=== PATIENT | female | born 1940 | race Caucasian/White ===

== ENCOUNTER 2017-11-24 21:37 | Inpatient (IN) | payer MEDICARE ==
[~2017-11-24] VITALS: Ht 160 cm; Wt 74.3 kg
[~2017-11-24 21:37] MED LIST: ARFO15NE IN; ASPI325T4 PO; ATOR20TA50 PO; BUDE0.253 IN; ESTR0.3T PO; FURO40TA4 PO; HYDR50TA15 PO; LEVO50TA7 PO; LOSA100T33 PO; MAGN400T5 PO; MULT-228 PO; MULT-688 PO; POTA10TA51 PO; TIOTCAP IN; aspirin; brovana; furosemide; levothyroxine; lipitor; potassium; soma; spiriva
[2017-11-24 22:19] LABS: Hematocrit 41.5 % (36.0-46.0); Hemoglobin 13.7 g/dL (12.2-16.2); Mean Corpuscular Hemoglobin 32.1 pg (28.0-32.0); Mean Corpuscular Hgb Conc. 33.1 g/dL (32.0-36.0); Partial Thromboplastin Time 27.7 sec (23.78-33.04); Platelet Count (auto) 298 10^3/uL (140-450); Prothrombin Time 10.7 sec (9.27-12.13); Red Blood Cells 4.28 10^6/uL (4.0-5.20); Red Cell Distribution Width 17.6 % (11.8-14.3); White Blood Cell 6.7 10^3/uL (4.4-10.8)
[2017-11-24 22:21] LABS: Alanine Aminotransferase 57 U/L (13-56); Albumin 3.4 g/dL (3.4-5.0); Anion Gap 13 (5-15); Aspartate Aminotransferase 31 U/L (15-37); BUN/Creatinine Ratio 14.1; Blood Urea Nitrogen 29 mg/dL (7-18); Calcium 9.4 mg/dL (8.5-10.1); Carbon Dioxide 24 mmol/L (21-32); Chloride 102 mmol/L (98-107); GFR African American 30 mL/min; GFR Non-African American 25 mL/min; Glucose 151 mg/dL (74-106); Magnesium 2.4 mg/dL (1.6-2.6); Potassium 4.6 mmol/L (3.5-5.1); Sodium 139 mmol/L (136-145)
[2017-11-24 22:24] LABS: Basophils % (manual) 0 (0.0-2.0); Blast Cells 0; Eosinophils % (manual) 0 (0-7); Metamyelocytes % 0; Myelocytes % 0; Promyelocytes % 0; Reactive Lymphocytes 0
[2017-11-24 22:26] LABS: Alkaline Phosphatase 38 U/L (45-117); Bilirubin, Total 0.5 mg/dL (0.2-1.0); Total Protein 7.8 g/dL (6.4-8.2)
[2017-11-24 22:59] LABS: Band Neutrophils % (manual) 2; Lymphocytes % (manual) 18 (10.0-50.0); Monocytes % (manual) 3 (0-12)
[2017-11-25] VITALS (7 sets, daily range): BP systolic 146–207; BP diastolic 54–87
[2017-11-25] MEDS ORDERED: TICA90TA PO (01:07)
[2017-11-25] MEDS ORDERED: FOLITAB22 PO (01:07)
[2017-11-25] MEDS ORDERED: MONT10TA34 OR (01:07)
[2017-11-25] MEDS ORDERED: AMIO200T33 PO (01:07)
[2017-11-25] MEDS ORDERED: METO-158 PO (01:07)
[2017-11-25] MEDS ORDERED: ESTR0.3T PO (01:07)
[2017-11-25] MEDS ORDERED: APIX2.5T OR (01:07)
[2017-11-25] MEDS ORDERED: ROSU20TA14 PO (01:07)
[2017-11-25] MEDS ORDERED: FENO1TAB42 OR (01:07)
[2017-11-25] MEDS ORDERED: ALLO300T2 PO (01:07)
[2017-11-25] MEDS ORDERED: FURO20TA3 PO (01:07)
[2017-11-25] MEDS ORDERED: HYDROcodone-ACET 5/325MG TAB PO ONE (01:30)
[2017-11-25] MEDS ORDERED: ACETAMINOPHEN 500 MG TAB PO ONE (02:15)
[2017-11-25] MEDS ORDERED: cloNIDine HCL 0.1 MG TAB PO ONE (03:15)
[2017-11-25] MEDS ORDERED: FUROSEMIDE 20 MG/2 ML VIAL IV ONE (03:15)
[2017-11-25] MEDS ORDERED: MORPHINE SULF INJ 2 MG/ML SYRINGE 1ML IV PRN (04:15)
[2017-11-25] MEDS ORDERED: NITROGLYCERIN 0.4 MG SL TAB SL PRN (04:15)
[2017-11-25] MEDS ORDERED: ONDANSETRON HCL 4 MG/2 ML VIAL IV PRN (04:15)
[2017-11-25] MEDS ORDERED: HYDROcodone-ACET 5/325MG TAB PO PRN (04:15)
[2017-11-25 04:16] LABS: Urine Bacteria FEW /hpf (None Seen); Urine Blood Negative /uL (Negative); Urine Specific Gravity 1.011 (1.001-1.035); Urine WBC 1 /hpf (0 - 5)
[2017-11-25 05:23] LABS: Basophils # (auto) 0 uL; Basophils % (auto) 0.2 % (0.0-2.0); Eosinophils # (auto) 0 uL; Eosinophils % (auto) 0.1 % (0.0-7.0); Hematocrit 38.3 % (36.0-46.0); Hemoglobin 12.8 g/dL (12.2-16.2); Lymphocytes # (auto) 0.9 uL; Lymphocytes % (auto) 8.8 % (10.0-50.0); Mean Corpuscular Hemoglobin 32.3 pg (28.0-32.0); Mean Corpuscular Hgb Conc. 33.3 g/dL (32.0-36.0); Mean Corpuscular Volume 97.1 fL (80.0-100.0); Monocytes # (auto) 0.8 uL; Monocytes % (auto) 8.1 % (0.0-12.0); Neutrophils # (auto) 8.3 uL; Neutrophils % (auto) 82.8 % (37.0-80.0); Nucleated Red Blood Cells % 0.1 %; Platelet Count (auto) 259 10^3/uL (140-450); Red Blood Cells 3.94 10^6/uL (4.0-5.20); Red Cell Distribution Width 16.9 % (11.8-14.3); White Blood Cell 10.1 10^3/uL (4.4-10.8)
[2017-11-25 05:43] LABS: BUN/Creatinine Ratio 16.4; Calcium 9.3 mg/dL (8.5-10.1)
[2017-11-25] MEDS: IPRATROPIUM BROM 0.5 MG/2.5ML INH SOL NEB SCH ×4 (06:27→23:02)
[2017-11-25] MEDS: ALBUTEROL SULF 2.5 MG/0.5ML(0.5%) NEB SOLN NEB SCH ×4 (06:27→23:02)
[2017-11-25] MEDS: LEVOTHYROXINE SODIUM 50 MCG TAB PO SCH (07:46)
[2017-11-25] MEDS: hydrALAZINE HCL 20 MG/ML VL IV PRN ×2 (07:47→21:48)
[2017-11-25] MEDS: FUROSEMIDE 40 MG/4 ML VIAL IV SCH (10:14)
[2017-11-25] MEDS: AMIODARONE HCL 200 MG TAB PO SCH ×2 (10:15→21:47)
[2017-11-25] MEDS: METOPROLOL TARTRATE 50 MG TAB PO SCH ×2 (10:15→21:47)
[2017-11-25] MEDS: ACETAMINOPHEN 500 MG TAB PO PRN ×2 (10:25→20:21)
[2017-11-25] MEDS ORDERED: LEVOFLOXACIN 500MG 100 ML IV ONE (13:45)
[2017-11-25] MEDS ORDERED: methylPREDNISolone SOD SUCC 125 MG/2 ML VL IV ONE (13:45)
[2017-11-25] MEDS ORDERED: TIOT1AER IN (15:50)
[2017-11-25] MEDS: MONTELUKAST SODIUM 10 MG TAB PO SCH (21:47)
[2017-11-25] MEDS: TEMAZEPAM 15 MG CAP PO PRN (23:21)
[2017-11-26] MEDS: ACETAMINOPHEN 500 MG TAB PO PRN (03:38)
[2017-11-26 05:13] VITALS: BP 154/74
[2017-11-26] MEDS: LEVOTHYROXINE SODIUM 50 MCG TAB PO SCH (06:49)
[2017-11-26] MEDS: hydrALAZINE HCL 20 MG/ML VL IV PRN ×2 (06:49→23:39)
[2017-11-26] MEDS: ALBUTEROL SULF 2.5 MG/0.5ML(0.5%) NEB SOLN NEB SCH ×3 (07:10→19:45)
[2017-11-26] MEDS: IPRATROPIUM BROM 0.5 MG/2.5ML INH SOL NEB SCH ×3 (07:10→19:45)
[2017-11-26 09:00] VITALS: BP_SYST 118; BP_SYST 120; BP_DIAS 58; BP_DIAS 72
[2017-11-26] MEDS: LEVOFLOXACIN 250MG 50 ML IV SCH (09:55)
[2017-11-26] MEDS: methylPREDNISolone SOD SUCC 125 MG/2 ML VL IV SCH (09:55)
[2017-11-26] MEDS: FUROSEMIDE 40 MG/4 ML VIAL IV SCH (09:55)
[2017-11-26] MEDS: AMIODARONE HCL 200 MG TAB PO SCH ×2 (09:56→21:58)
[2017-11-26] MEDS ORDERED: TICAGRELOR 90 MG TAB PO ONE (10:45)
[2017-11-26] MEDS ORDERED: APIXABAN 2.5 MG TAB PO ONE (10:52)
[2017-11-26] MEDS: METOPROLOL TARTRATE 50 MG TAB PO SCH ×2 (12:51→21:59)
[2017-11-26 13:00] VITALS: BP 159/67
[2017-11-26 17:00] VITALS: BP 160/80
[2017-11-26] MEDS: cloNIDine HCL 0.1 MG TAB PO PRN (18:02)
[2017-11-26] MEDS: MONTELUKAST SODIUM 10 MG TAB PO SCH (21:58)
[2017-11-26] MEDS: APIXABAN 2.5 MG TAB PO SCH (21:58)
[2017-11-26 22:00] VITALS: BP 152/80
[2017-11-26] MEDS: TICAGRELOR 90 MG TAB PO SCH (22:00)
[2017-11-27] MEDS: IPRATROPIUM BROM 0.5 MG/2.5ML INH SOL NEB SCH ×6 (01:22→22:30)
[2017-11-27] MEDS: ALBUTEROL SULF 2.5 MG/0.5ML(0.5%) NEB SOLN NEB SCH ×6 (01:22→22:10)
[2017-11-27] MEDS: ACETAMINOPHEN 500 MG TAB PO PRN ×3 (01:30→23:32)
[2017-11-27 05:00] VITALS: BP 111/45
[2017-11-27] MEDS: LEVOTHYROXINE SODIUM 50 MCG TAB PO SCH (06:50)
[2017-11-27 09:00] VITALS: BP 148/54
[2017-11-27] MEDS: TICAGRELOR 90 MG TAB PO SCH ×2 (09:55→22:12)
[2017-11-27] MEDS: FUROSEMIDE 40 MG/4 ML VIAL IV SCH (09:55)
[2017-11-27] MEDS: methylPREDNISolone SOD SUCC 125 MG/2 ML VL IV SCH (09:55)
[2017-11-27] MEDS: LEVOFLOXACIN 250MG 50 ML IV SCH (09:55)
[2017-11-27] MEDS: METOPROLOL TARTRATE 50 MG TAB PO SCH ×2 (09:56→22:10)
[2017-11-27] MEDS: APIXABAN 2.5 MG TAB PO SCH ×2 (09:56→22:10)
[2017-11-27] MEDS: AMIODARONE HCL 200 MG TAB PO SCH ×2 (09:56→22:10)
[2017-11-27] MEDS: cloNIDine HCL 0.1 MG TAB PO PRN ×2 (12:17→23:32)
[2017-11-27 13:00] VITALS: BP 179/86
[2017-11-27] MEDS ORDERED: LACTULOSE 20Gm/30ML SOLN PO ONE (13:15)
[2017-11-27 17:20] VITALS: BP 148/62
[2017-11-27 22:00] VITALS: BP 151/63
[2017-11-27] MEDS ORDERED: LACTULOSE 20Gm/30ML SOLN PO PRN (22:00)
[2017-11-27] MEDS: MONTELUKAST SODIUM 10 MG TAB PO SCH (22:10)
[2017-11-28 01:15] VITALS: BP 168/88
[2017-11-28] MEDS: IPRATROPIUM BROM 0.5 MG/2.5ML INH SOL NEB SCH ×6 (02:00→18:48)
[2017-11-28] MEDS: ALBUTEROL SULF 2.5 MG/0.5ML(0.5%) NEB SOLN NEB SCH ×5 (02:00→18:47)
[2017-11-28 05:00] VITALS: BP 121/55
[2017-11-28] MEDS: LEVOTHYROXINE SODIUM 50 MCG TAB PO SCH (06:45)
[2017-11-28 09:00] VITALS: BP 132/42
[2017-11-28] MEDS: LEVOFLOXACIN 250MG 50 ML IV SCH (09:27)
[2017-11-28] MEDS: methylPREDNISolone SOD SUCC 125 MG/2 ML VL IV SCH (09:28)
[2017-11-28] MEDS: TICAGRELOR 90 MG TAB PO SCH (09:28)
[2017-11-28] MEDS: FUROSEMIDE 40 MG/4 ML VIAL IV SCH (09:28)
[2017-11-28] MEDS: APIXABAN 2.5 MG TAB PO SCH ×2 (09:29→22:04)
[2017-11-28] MEDS: AMIODARONE HCL 200 MG TAB PO SCH (09:29)
[2017-11-28] MEDS: METOPROLOL TARTRATE 50 MG TAB PO SCH (10:00)
[2017-11-28] MEDS: ACETAMINOPHEN 500 MG TAB PO PRN (11:16)
[2017-11-28 13:00] VITALS: BP 129/74
[2017-11-28 13:09] LABS: Hemoglobin 12.8 g/dL (12.2-16.2); Mean Corpuscular Hemoglobin 32.6 pg (28.0-32.0); Mean Corpuscular Hgb Conc. 33.7 g/dL (32.0-36.0); Mean Corpuscular Volume 96.5 fL (80.0-100.0); Platelet Count (auto) 306 10^3/uL (140-450); Red Blood Cells 3.94 10^6/uL (4.0-5.20); Red Cell Distribution Width 17.1 % (11.8-14.3)
[2017-11-28 13:11] LABS: Basophils % (manual) 0 (0.0-2.0); Blast Cells 0; Eosinophils % (manual) 0 (0-7); Metamyelocytes % 0; Myelocytes % 0; Promyelocytes % 0; Reactive Lymphocytes 0
[2017-11-28 13:27] LABS: Albumin 3.1 g/dL (3.4-5.0); Bilirubin, Total 0.6 mg/dL (0.2-1.0); Calcium 9.2 mg/dL (8.5-10.1); Potassium 3.9 mmol/L (3.5-5.1); Total Protein 6.5 g/dL (6.4-8.2)
[2017-11-28 13:46] LABS: Band Neutrophils % (manual) 2; Lymphocytes % (manual) 2 (10.0-50.0)
[2017-11-28 13:47] LABS: Monocytes % (manual) 5 (0-12)
[2017-11-28 17:00] VITALS: BP 117/49
[2017-11-28] MEDS ORDERED: ASPirin 81 mg TAB PO ONE (18:30)
[2017-11-28] MEDS ORDERED: VERAPAMIL HCL 120 mg ER tab PO ONE (18:30)
[2017-11-28] MEDS: BUDESONIDE (INHALATION) 0.5 MG/2 ML NEB NEB SCH (18:47)
[2017-11-28 20:20] LABS: Basophils # (auto) 0 uL; Eosinophils # (auto) 0 uL; Hematocrit 37.3 % (36.0-46.0); Hemoglobin 12.3 g/dL (12.2-16.2); Lymphocytes # (auto) 0.1 uL; Lymphocytes % (auto) 1.9 % (10.0-50.0); Mean Corpuscular Hgb Conc. 32.9 g/dL (32.0-36.0); Mean Corpuscular Volume 97.1 fL (80.0-100.0); Monocytes # (auto) 0.1 uL; Monocytes % (auto) 1.5 % (0.0-12.0); Neutrophils # (auto) 6.8 uL; Neutrophils % (auto) 96.6 % (37.0-80.0); Nucleated Red Blood Cells % 0.1 %; Platelet Count (auto) 287 10^3/uL (140-450); Red Blood Cells 3.85 10^6/uL (4.0-5.20); Red Cell Distribution Width 16.9 % (11.8-14.3); White Blood Cell 7.1 10^3/uL (4.4-10.8)
[2017-11-28 20:34] LABS: Albumin 2.9 g/dL (3.4-5.0); BUN/Creatinine Ratio 28.1; Bilirubin, Total 0.5 mg/dL (0.2-1.0); CRP High Sensitivity 6.35 mg/dL (< 0.3); Calcium 8.9 mg/dL (8.5-10.1); Potassium 3.9 mmol/L (3.5-5.1); Total Protein 6.4 g/dL (6.4-8.2)
[2017-11-28 22:00] VITALS: BP 146/77
[2017-11-28] MEDS ORDERED: SYMBICORT INH SCH (22:00)
[2017-11-28] MEDS ORDERED: SYMBICORT 160 MCG INH SCH (22:00)
[2017-11-28] MEDS: predniSONE 20 MG TAB PO SCH (22:04)
[2017-11-28] MEDS: MONTELUKAST SODIUM 10 MG TAB PO SCH (22:04)
[2017-11-28] MEDS: DOXYCYCLINE 100 MG TAB/CAP PO SCH (22:04)
[2017-11-29] MEDS: TEMAZEPAM 15 MG CAP PO PRN (00:03)
[2017-11-29] MEDS: cloNIDine HCL 0.1 MG TAB PO PRN (05:27)
[2017-11-29 05:30] VITALS: BP 164/78
[2017-11-29] MEDS: LEVOTHYROXINE SODIUM 50 MCG TAB PO SCH (05:30)
[2017-11-29] MEDS: ALBUTEROL SULF 2.5 MG/0.5ML(0.5%) NEB SOLN NEB SCH ×4 (06:00→19:35)
[2017-11-29] MEDS: BUDESONIDE (INHALATION) 0.5 MG/2 ML NEB NEB SCH ×2 (06:00→19:35)
[2017-11-29] MEDS: IPRATROPIUM BROM 0.5 MG/2.5ML INH SOL NEB SCH ×4 (06:00→19:35)
[2017-11-29 09:00] VITALS: BP 121/73
[2017-11-29] MEDS ORDERED: VERAPAMIL HCL 120 mg ER tab PO SCH (10:00)
[2017-11-29] MEDS ORDERED: predniSONE 20 MG TAB PO SCH (10:00)
[2017-11-29] MEDS: LEVOFLOXACIN 250MG 50 ML IV SCH (10:05)
[2017-11-29] MEDS: ASPirin 81 mg TAB PO SCH (10:06)
[2017-11-29] MEDS: APIXABAN 2.5 MG TAB PO SCH ×2 (10:06→22:26)
[2017-11-29] MEDS: DOXYCYCLINE 100 MG TAB/CAP PO SCH ×2 (10:08→22:25)
[2017-11-29] MEDS: predniSONE 20 MG TAB PO SCH (10:09)
[2017-11-29] MEDS: FUROSEMIDE 40 MG/4 ML VIAL IV SCH (10:09)
[2017-11-29] MEDS ORDERED: ACCU-CHEK COMFORT CURVE STRIP VI ONE (12:00)
[2017-11-29 12:46] VITALS: BP 105/48
[2017-11-29] MEDS: hydrALAZINE HCL 25 MG TAB PO SCH ×2 (14:00→22:00)
[2017-11-29] MEDS: ACCU-CHEK COMFORT CURVE STRIP VI SCH ×2 (17:00→22:25)
[2017-11-29 17:05] VITALS: BP 139/74
[2017-11-29] MEDS: ALBUMIN 25% 100 ML IV SCH (18:39)
[2017-11-29 22:00] VITALS: BP 159/75
[2017-11-29] MEDS: MONTELUKAST SODIUM 10 MG TAB PO SCH (22:25)
[2017-11-29] MEDS: BUMETANIDE (0.25MG/ML) 4 ML VIAL IV SCH (22:30)
[2017-11-30] VITALS (7 sets, daily range): BP systolic 148–164; BP diastolic 64–98
[2017-11-30] MEDS: TEMAZEPAM 15 MG CAP PO PRN ×2 (00:23→23:16)
[2017-11-30] MEDS: ALBUMIN 25% 100 ML IV SCH ×2 (01:28→10:36)
[2017-11-30 05:56] LABS: Hematocrit 34.3 % (36.0-46.0); Hemoglobin 11.6 g/dL (12.2-16.2); Mean Corpuscular Hemoglobin 32.2 pg (28.0-32.0); Mean Corpuscular Hgb Conc. 33.7 g/dL (32.0-36.0); Mean Corpuscular Volume 95.5 fL (80.0-100.0); Platelet Count (auto) 274 10^3/uL (140-450); Red Cell Distribution Width 16.3 % (11.8-14.3)
[2017-11-30 06:00] LABS: Albumin 4.2 g/dL (3.4-5.0); BUN/Creatinine Ratio 37.8; Bilirubin, Total 0.6 mg/dL (0.2-1.0); Calcium 9.3 mg/dL (8.5-10.1); Potassium 3.7 mmol/L (3.5-5.1); Total Protein 7.2 g/dL (6.4-8.2)
[2017-11-30 06:17] LABS: Basophils % (manual) 0 (0.0-2.0); Blast Cells 0; Eosinophils % (manual) 0 (0-7); Metamyelocytes % 0; Myelocytes % 0; Promyelocytes % 0; Reactive Lymphocytes 0
[2017-11-30] MEDS: LEVOTHYROXINE SODIUM 50 MCG TAB PO SCH (06:58)
[2017-11-30] MEDS: hydrALAZINE HCL 25 MG TAB PO SCH ×3 (06:58→22:25)
[2017-11-30] MEDS: BUMETANIDE (0.25MG/ML) 4 ML VIAL IV SCH ×3 (06:59→22:23)
[2017-11-30] MEDS: ALBUTEROL SULF 2.5 MG/0.5ML(0.5%) NEB SOLN NEB SCH ×5 (07:01→21:30)
[2017-11-30] MEDS: IPRATROPIUM BROM 0.5 MG/2.5ML INH SOL NEB SCH ×5 (07:01→21:30)
[2017-11-30] MEDS: ACCU-CHEK COMFORT CURVE STRIP VI SCH ×4 (07:04→22:24)
[2017-11-30 07:49] LABS: Band Neutrophils % (manual) 3; Lymphocytes % (manual) 12 (10.0-50.0); Monocytes % (manual) 5 (0-12)
[2017-11-30] MEDS: BUDESONIDE (INHALATION) 0.5 MG/2 ML NEB NEB SCH ×2 (10:00→21:30)
[2017-11-30] MEDS ORDERED: VERAPAMIL HCL 120 mg ER tab PO SCH (10:00)
[2017-11-30] MEDS: ASPirin 81 mg TAB PO SCH (10:37)
[2017-11-30] MEDS: predniSONE 20 MG TAB PO SCH (10:37)
[2017-11-30] MEDS: APIXABAN 2.5 MG TAB PO SCH ×2 (10:37→22:24)
[2017-11-30] MEDS: DOXYCYCLINE 100 MG TAB/CAP PO SCH ×2 (10:37→22:24)
[2017-11-30] MEDS: LEVOFLOXACIN 250MG 50 ML IV SCH (10:37)
[2017-11-30] MEDS: ALBUMIN 25% 50 ML IV SCH (21:00)
[2017-11-30] MEDS: MONTELUKAST SODIUM 10 MG TAB PO SCH (22:24)
[2017-11-30] MEDS: hydrALAZINE HCL 20 MG/ML VL IV PRN (22:26)
[2017-12-01] VITALS (7 sets, daily range): BP systolic 142–168; BP diastolic 58–87
[2017-12-01] MEDS: ALBUMIN 25% 50 ML IV SCH (05:00)
[2017-12-01] MEDS: ALBUTEROL SULF 2.5 MG/0.5ML(0.5%) NEB SOLN NEB SCH ×3 (06:15→19:37)
[2017-12-01] MEDS: IPRATROPIUM BROM 0.5 MG/2.5ML INH SOL NEB SCH ×3 (06:15→19:37)
[2017-12-01 06:31] LABS: Hematocrit 32.9 % (36.0-46.0); Mean Corpuscular Hgb Conc. 33.5 g/dL (32.0-36.0); Mean Corpuscular Volume 95.5 fL (80.0-100.0); Platelet Count (auto) 275 10^3/uL (140-450); Red Blood Cells 3.45 10^6/uL (4.0-5.20); Red Cell Distribution Width 16.7 % (11.8-14.3); White Blood Cell 6.7 10^3/uL (4.4-10.8)
[2017-12-01] MEDS: BUDESONIDE (INHALATION) 0.5 MG/2 ML NEB NEB SCH ×2 (06:32→22:00)
[2017-12-01] MEDS: hydrALAZINE HCL 25 MG TAB PO SCH ×3 (06:36→22:15)
[2017-12-01] MEDS: LEVOTHYROXINE SODIUM 50 MCG TAB PO SCH (06:37)
[2017-12-01] MEDS: ACCU-CHEK COMFORT CURVE STRIP VI SCH ×4 (06:42→22:26)
[2017-12-01 06:48] LABS: Basophils % (manual) 0 (0.0-2.0); Blast Cells 0; Eosinophils % (manual) 0 (0-7); Metamyelocytes % 0; Myelocytes % 0; Promyelocytes % 0; Reactive Lymphocytes 0
[2017-12-01] MEDS: ACETAMINOPHEN 500 MG TAB PO PRN ×2 (06:49→20:30)
[2017-12-01] MEDS: BUMETANIDE (0.25MG/ML) 4 ML VIAL IV SCH ×3 (06:49→22:14)
[2017-12-01 06:53] LABS: Albumin 4.1 g/dL (3.4-5.0); BUN/Creatinine Ratio 44.7; Bilirubin, Total 0.7 mg/dL (0.2-1.0); Calcium 8.7 mg/dL (8.5-10.1); Total Protein 6.8 g/dL (6.4-8.2)
[2017-12-01] MEDS ORDERED: POTASSIUM CHL 20 Meq TABLET PO ONE (07:45)
[2017-12-01 08:04] LABS: Band Neutrophils % (manual) 2; Lymphocytes % (manual) 15 (10.0-50.0); Monocytes % (manual) 9 (0-12)
[2017-12-01] MEDS: APIXABAN 2.5 MG TAB PO SCH ×2 (11:00→22:14)
[2017-12-01] MEDS: DOXYCYCLINE 100 MG TAB/CAP PO SCH ×2 (11:00→22:15)
[2017-12-01] MEDS: predniSONE 20 MG TAB PO SCH (11:00)
[2017-12-01] MEDS: LEVOFLOXACIN 250MG 50 ML IV SCH (11:01)
[2017-12-01] MEDS: ASPirin 81 mg TAB PO SCH (11:20)
[2017-12-01] MEDS: cloNIDine HCL 0.1 MG TAB PO PRN (20:23)
[2017-12-01] MEDS: MONTELUKAST SODIUM 10 MG TAB PO SCH (22:15)
[2017-12-01] MEDS: TEMAZEPAM 15 MG CAP PO PRN (22:15)
[2017-12-02] MEDS: IPRATROPIUM BROM 0.5 MG/2.5ML INH SOL NEB SCH ×4 (00:44→11:28)
[2017-12-02] MEDS: ALBUTEROL SULF 2.5 MG/0.5ML(0.5%) NEB SOLN NEB SCH ×4 (00:44→11:32)
[2017-12-02 05:00] VITALS: BP 162/79
[2017-12-02] MEDS: hydrALAZINE HCL 25 MG TAB PO SCH ×2 (05:03→14:00)
[2017-12-02] MEDS: BUDESONIDE (INHALATION) 0.5 MG/2 ML NEB NEB SCH (06:23)
[2017-12-02] MEDS: cloNIDine HCL 0.1 MG TAB PO PRN (06:38)
[2017-12-02] MEDS: LEVOTHYROXINE SODIUM 50 MCG TAB PO SCH (06:38)
[2017-12-02] MEDS: ACCU-CHEK COMFORT CURVE STRIP VI SCH ×2 (06:42→12:28)
[2017-12-02 07:47] LABS: Hematocrit 38.1 % (36.0-46.0); Hemoglobin 12.7 g/dL (12.2-16.2); Mean Corpuscular Hemoglobin 31.8 pg (28.0-32.0); Mean Corpuscular Hgb Conc. 33.3 g/dL (32.0-36.0); Mean Corpuscular Volume 95.7 fL (80.0-100.0); Platelet Count (auto) 329 10^3/uL (140-450); Red Blood Cells 3.99 10^6/uL (4.0-5.20); White Blood Cell 8.8 10^3/uL (4.4-10.8)
[2017-12-02 07:51] LABS: Basophils % (manual) 0 (0.0-2.0); Blast Cells 0; Eosinophils % (manual) 0 (0-7); Metamyelocytes % 0; Myelocytes % 0; Promyelocytes % 0; Reactive Lymphocytes 0
[2017-12-02 08:00] VITALS: BP 149/56
[2017-12-02 08:11] LABS: Albumin 4.2 g/dL (3.4-5.0); Bilirubin, Total 1.1 mg/dL (0.2-1.0); Calcium 9.6 mg/dL (8.5-10.1); Potassium 3.4 mmol/L (3.5-5.1); Total Protein 7.2 g/dL (6.4-8.2)
[2017-12-02 08:49] LABS: Band Neutrophils % (manual) 3; Lymphocytes % (manual) 18 (10.0-50.0); Monocytes % (manual) 8 (0-12)
[2017-12-02 09:00] VITALS: BP 149/56
[2017-12-02] MEDS: BUMETANIDE (0.25MG/ML) 4 ML VIAL IV SCH (09:31)
[2017-12-02] MEDS: LEVOFLOXACIN 250MG 50 ML IV SCH (09:31)
[2017-12-02] MEDS: ASPirin 81 mg TAB PO SCH (09:41)
[2017-12-02] MEDS: DOXYCYCLINE 100 MG TAB/CAP PO SCH (09:41)
[2017-12-02] MEDS: APIXABAN 2.5 MG TAB PO SCH (09:41)
[2017-12-02] MEDS ORDERED: predniSONE 20 MG TAB PO SCH (10:00)
[2017-12-02 10:45] VITALS: BP 149/59
[2017-12-02 11:53] VITALS: BP 155/72
== END 2017-12-02 14:00 | disposition home or self-care (01) | DRG 291 ==
LOC: EDUNIT# 21:37 → EDBD 21:37 → ER 21:42 → TELE 21:43 → TELE-WESTW 11-25 05:30
PROVIDERS: ADMIT Nurse Practitioner Family; ATTEND Family Medicine
PROC: 5A09357 Assistance with Respiratory Ventilation, Less than 24 Consecutive Hours, Continuous Positive Airway Pressure (ICD-10-PCS; principal; 2017-11-24)
DX: I13.2 Hypertensive heart and chronic kidney disease with heart failure and with stage 5 chronic kidney disease, or end stage renal disease (principal); I50.43 Acute on chronic combined systolic (congestive) and diastolic (congestive) heart failure; J96.20 Acute and chronic respiratory failure, unspecified whether with hypoxia or hypercapnia; J44.1 Chronic obstructive pulmonary disease with (acute) exacerbation; N17.9 Acute kidney failure, unspecified; E87.1 Hypo-osmolality and hyponatremia; N18.5 Chronic kidney disease, stage 5; I25.10 Atherosclerotic heart disease of native coronary artery without angina pectoris; E66.01 Morbid (severe) obesity due to excess calories; E03.9 Hypothyroidism, unspecified; E78.5 Hyperlipidemia, unspecified; I48.0 Paroxysmal atrial fibrillation; T38.0X5A Adverse effect of glucocorticoids and synthetic analogues, initial encounter; Y92.89 Other specified places as the place of occurrence of the external cause; Z79.01 Long term (current) use of anticoagulants; Z79.82 Long term (current) use of aspirin; Z80.9 Family history of malignant neoplasm, unspecified; Z82.3 Family history of stroke; Z82.49 Family history of ischemic heart disease and other diseases of the circulatory system; Z86.73 Personal history of transient ischemic attack (TIA), and cerebral infarction without residual deficits; Z88.8 Allergy status to other drugs, medicaments and biological substances; Z90.710 Acquired absence of both cervix and uterus; Z95.5 Presence of coronary angioplasty implant and graft; Z99.81 Dependence on supplemental oxygen; Z79.899 Other long term (current) drug therapy; Z86.79 Personal history of other diseases of the circulatory system; Z88.1 Allergy status to other antibiotic agents; Z88.0 Allergy status to penicillin; Z68.29 Body mass index [BMI] 29.0-29.9, adult
CPT/HCPCS: 36415; 36600; 71045; 78582; 80048; 80053; 81001; 82805; 82962; 83735; 83880; 84484; 85007; 85025; 85027; 85379; 85610; 85730; 86141; 93005; 94640; 94660; 94761; 96365; 96366; 96375; J1956; P9047

== ENCOUNTER → 2018-04-04 | Outpatient (CLI) | payer MEDICARE ==
[~2018-04-04] MED LIST changes: +ALLO300T2 PO; +AMIO200T33 PO; +APIX2.5T OR; -ASPI325T4 PO; -ATOR20TA50 PO; -BUDE0.253 IN; +FENO1TAB42 OR; +FOLITAB22 PO; +FURO20TA3 PO; -FURO40TA4 PO; +METO-158 PO; +MONT10TA34 OR; -MULT-228 PO; -MULT-688 PO; +ROSU20TA14 PO; +TICA90TA PO; +TIOT1AER IN; -brovana; -furosemide; -levothyroxine; -lipitor; -potassium; -soma; -spiriva
== END | disposition home or self-care (01) ==
LOC: XY 11:16
PROVIDERS: ATTEND Internal Medicine
DX: I70.0 Atherosclerosis of aorta (principal); I51.7 Cardiomegaly; R09.89 Other specified symptoms and signs involving the circulatory and respiratory systems
CPT/HCPCS: 71045; 78582; A9540; A9558

== ENCOUNTER 2019-01-18 06:20 | Inpatient (IN) | payer MEDICARE ==
[~2019-01-18] VITALS: Ht 152.4 cm; Wt 83.1 kg
[2019-01-18] MEDS ORDERED: SODIUM CHLORIDE 0.9% 1,000 ML IV ONE ×2 (06:39)
[2019-01-18] MEDS ORDERED: ONDANSETRON HCL 4 MG/2 ML VIAL IV ONE (06:45)
[2019-01-18 07:20] LABS: Basophils # (auto) 0 uL; Basophils % (auto) 0.2 % (0.0-2.0); Eosinophils # (auto) 0.1 uL; Eosinophils % (auto) 0.6 % (0.0-7.0); Hematocrit 44.4 % (36.0-46.0); Hemoglobin 14.7 g/dL (12.2-16.2); Lymphocytes # (auto) 0.4 uL; Lymphocytes % (auto) 2.3 % (10.0-50.0); Mean Corpuscular Hemoglobin 30.5 pg (28.0-32.0); Mean Corpuscular Hgb Conc. 33.2 g/dL (32.0-36.0); Mean Corpuscular Volume 91.8 fL (80.0-100.0); Monocytes # (auto) 0.8 uL; Monocytes % (auto) 5.1 % (0.0-12.0); Neutrophils # (auto) 13.9 uL; Neutrophils % (auto) 91.8 % (37.0-80.0); Nucleated Red Blood Cells % 0.2 %; Platelet Count (auto) 260 10^3/uL (140-450); Red Blood Cells 4.83 10^6/uL (4.0-5.20); Red Cell Distribution Width 16.7 % (11.8-14.3); White Blood Cell 15.1 10^3/uL (4.4-10.8)
[2019-01-18 07:34] LABS: INR 1.02 (0.9-1.15); Partial Thromboplastin Time 22.5 sec (23.64-32.05)
[2019-01-18 07:38] LABS: Albumin 3.3 g/dL (3.4-5.0); BUN/Creatinine Ratio 25.3; Calcium 8.4 mg/dL (8.5-10.1); Potassium 3.2 mmol/L (3.5-5.1)
[2019-01-18 07:43] LABS: Bilirubin, Total 0.8 mg/dL (0.2-1.0); Total Protein 6.7 g/dL (6.4-8.2)
[2019-01-18] MEDS ORDERED: PROMETHAZINE HCL 25 MG/ML 1ML ONE (08:20)
[2019-01-18] MEDS ORDERED: PROMETHAZINE HCL 25 MG/ML 1ML IV ONE (08:30)
[2019-01-18] MEDS ORDERED: LEVOFLOXACIN 500MG 100 ML IV ONE ×2 (09:00→13:00)
[2019-01-18] MEDS ORDERED: ENOXAPARIN SOD 80 MG/0.8ML SYRINGE SC ONE (09:00)
[2019-01-18 10:06] LABS: Lactic Acid w/Reflex 4.6 mmol/L (0.4-2.0)
[2019-01-18 11:53] LABS: Amylase 65 U/L (25-115); Lipase 236 U/L (73-393)
[2019-01-18] MEDS ORDERED: SODIUM CHLORIDE 0.9% 1,000 ML IV SCH (12:49)
[2019-01-18] MEDS ORDERED: MORPHINE SULFATE 4 MG/ML SYR/VIAL IV PRN (13:00)
[2019-01-18] MEDS ORDERED: ALBUTEROL SULF 2.5 MG/0.5ML(0.5%) NEB SOLN NEB PRN (13:00)
[2019-01-18] MEDS ORDERED: MORPHINE SULF INJ 2 MG/ML SYRINGE 1ML IV PRN (13:00)
[2019-01-18] MEDS ORDERED: TEMAZEPAM 15 MG CAP PO PRN (13:00)
[2019-01-18] MEDS ORDERED: PROMETHAZINE HCL 25 MG/ML 1ML IV PRN (13:00)
[2019-01-18] MEDS ORDERED: ACETAMINOPHEN 500 MG TAB PO PRN (13:00)
[2019-01-18] MEDS ORDERED: traMADol HCL 50 MG TAB PO PRN (13:00)
[2019-01-18] MEDS ORDERED: NITROGLYCERIN 0.4 MG SL TAB SL PRN (13:00)
[2019-01-18] MEDS ORDERED: DEXTROSE (50%) 50ML SYRG IV PRN (13:00)
[2019-01-18] MEDS ORDERED: PANTOPRAZOLE 40 MG TAB PO ONE (13:15)
[2019-01-18] MEDS: SODIUM CHLORIDE 0.9% 1,000 ML IV SCH ×2 (13:15→14:46)
--- NOTE | 2019-01-18 14:05 | NUR ---
Telemetry admit from ER LEONCIO BURGESS admitted to Telemetry unit after SBAR received. Patient oriented to KIRAN HENDERSON RN primary RN, unit, room, bed, and unit policies regarding patient care and visiting hours. Patient now on continuous telemetry monitoring, tele box # [id number] and telemetry reading on arrival to unit is SR. Patient placed on bedside oxygen, weighed by bedscale and encouraged to call if they need something. All questions and concerns addressed, patient verbalized understanding.
[2019-01-18 14:26] VITALS: BP 115/50
[2019-01-18] MEDS: metroNIDAZOLE 500MG/100ML 100 ML IV SCH ×2 (14:46→22:07)
[2019-01-18 14:56] VITALS: BP 112/44
[2019-01-18 15:05] VITALS: BP 112/44
[2019-01-18] MEDS ORDERED: CLON0.1T PO (15:41)
[2019-01-18] MEDS ORDERED: BUME1TAB26 PO (15:41)
--- NOTE | 2019-01-18 16:15 | NUR ---
ROUNDING MD Wendy JALLOH AT BEDSIDE. NEW ORDERS RECIEVED. ALL QUESTIONS AND CONCERNS ADDRESSED AT THIS TIME
--- NOTE | 2019-01-18 16:32 | NUR ---
MD MILTON BAEZ AT BEDSIDE. NEW ORDERS RECIEVED. ALL QUESTIONS AND CONCERNS ADDRESSED AT THIS TIME.
--- NOTE | 2019-01-18 16:48 | NUR ---
MD CONTACT MD HARTLEY CALLED NURSING STATION REGARDING NEPHROLOGY CONSULT. NEW ORDERS RECIEVED AND ALL QUETIONS AND CONCERNS ADDRESSED.
[2019-01-18] MEDS: POTASSIUM CHL 20MEQ/100ML 100 ML IV SCH ×2 (17:01→22:00)
[2019-01-18 17:26] VITALS: BP 110/50
[2019-01-18] MEDS: InsuLIN REG 1unit/0.01ml Soln (100units/ml) SC SCH (18:00)
[2019-01-18] MEDS: IPRATROPIUM BROM 0.5 MG/2.5ML INH SOL NEB SCH (18:17)
[2019-01-18] MEDS: ALBUTEROL SULF 2.5 MG/0.5ML(0.5%) NEB SOLN NEB SCH (18:17)
[2019-01-18] MEDS: ACCU-CHEK COMFORT CURVE STRIP VI SCH (18:34)
[2019-01-18 18:49] LABS: Urine Bacteria FEW /hpf (None Seen); Urine Blood TRACE /uL (Negative); Urine Specific Gravity 1.017 (1.001-1.035); Urine WBC 3 /hpf (0 - 5)
[2019-01-18 22:00] VITALS: BP 142/62
--- NOTE | 2019-01-18 22:13 | NUR ---
Patient having diarrhea and is requesting something to help stop it like an Imodium
[2019-01-18] MEDS ORDERED: POTASSIUM CHL 20MEQ/100ML 100 ML IV ONE (23:03)
[2019-01-18] MEDS ORDERED: LOPERAMIDE 2 MG/10ml ORAL soln PO PRN (23:15)
[2019-01-18] MEDS ORDERED: LOPERAMIDE HCL 2 MG CAP PO PRN (23:30)
[2019-01-19] MEDS: ALBUTEROL SULF 2.5 MG/0.5ML(0.5%) NEB SOLN NEB SCH ×5 (00:12→23:52)
[2019-01-19] MEDS: IPRATROPIUM BROM 0.5 MG/2.5ML INH SOL NEB SCH ×5 (00:12→23:52)
[2019-01-19] MEDS: InsuLIN REG 1unit/0.01ml Soln (100units/ml) SC SCH ×4 (00:33→17:59)
[2019-01-19 05:04] VITALS: BP 151/74
[2019-01-19 05:53] LABS: Basophils # (auto) 0 uL; Basophils % (auto) 0.4 % (0.0-2.0); Eosinophils # (auto) 0.2 uL; Eosinophils % (auto) 3.1 % (0.0-7.0); Hematocrit 36.9 % (36.0-46.0); Hemoglobin 11.9 g/dL (12.2-16.2); Lymphocytes # (auto) 0.6 uL; Lymphocytes % (auto) 8.5 % (10.0-50.0); Mean Corpuscular Hemoglobin 30.3 pg (28.0-32.0); Mean Corpuscular Hgb Conc. 32.2 g/dL (32.0-36.0); Mean Corpuscular Volume 94.1 fL (80.0-100.0); Monocytes # (auto) 0.5 uL; Monocytes % (auto) 6.5 % (0.0-12.0); Neutrophils # (auto) 5.8 uL; Neutrophils % (auto) 81.5 % (37.0-80.0); Nucleated Red Blood Cells % 0.1 %; Platelet Count (auto) 190 10^3/uL (140-450); Red Blood Cells 3.92 10^6/uL (4.0-5.20); White Blood Cell 7.1 10^3/uL (4.4-10.8)
[2019-01-19] MEDS: ACCU-CHEK COMFORT CURVE STRIP VI SCH ×4 (06:17→17:59)
[2019-01-19] MEDS: metroNIDAZOLE 500MG/100ML 100 ML IV SCH ×3 (06:17→22:41)
[2019-01-19 06:27] LABS: Potassium 3.8 mmol/L (3.5-5.1)
[2019-01-19 06:31] LABS: Albumin 2.4 g/dL (3.4-5.0); BUN/Creatinine Ratio 25.5; Bilirubin, Total 0.6 mg/dL (0.2-1.0); Calcium 7.5 mg/dL (8.5-10.1); Total Protein 5.1 g/dL (6.4-8.2)
--- NOTE | 2019-01-19 08:08 | NUR ---
OPENING SHIFT NOTE ASSUMED CARE OF PATIENT. PATIENT IS AWAKE AND ALERT/ORIENTED X4. NO SOB OR SIGNS OF DISTRESS NOTED. INSTRUCTED ON POC AND TO CALL FOR HELP NEEDED. BED IS IN LOWEST POSITION WITH SIDE RAILS UP X2. WILL CONTINUE TO MONITOR.
[2019-01-19 08:43] VITALS: BP 162/73
[2019-01-19] MEDS ORDERED: LEVOFLOXACIN 500MG 100 ML IV SCH (10:00)
--- NOTE | 2019-01-19 11:00 | NUR ---
GI CONSULT DR JALLOH SAW PATIENT AND PLACED ORDERS. WILL CARRY OUT.
[2019-01-19] MEDS: predniSONE 20 MG TAB PO SCH (11:13)
[2019-01-19] MEDS: PANTOPRAZOLE 40 MG TAB PO SCH (11:14)
[2019-01-19] MEDS: SODIUM CHLORIDE 0.9% 1,000 ML IV SCH ×2 (11:14→22:42)
[2019-01-19 12:40] VITALS: BP 155/74
[2019-01-19] MEDS ORDERED: hydrALAZINE HCL 25 MG TAB PO ONE ×2 (14:00→14:30)
[2019-01-19] MEDS ORDERED: cloNIDine HCL 0.1 MG TAB PO PRN (14:00)
--- NOTE | 2019-01-19 14:01 | NUR ---
CALLED DR KRISHNA ABOUT PTS HIGH BLOOD PRESSURE. MEDICATIONS ORDERED. WILL PLACE AND CARRY OUT.
[2019-01-19 16:47] VITALS: BP 151/84
--- NOTE | 2019-01-19 19:30 | NUR ---
Opening Shift Note Assumed care of patient, awake and alert. No S/S of distress/SOB or pain. Insructed on POC and to callfor assist PRN, will continue to monitor for changes Q1hr and PRN.
[2019-01-19 20:00] VITALS: BP 151/84
[2019-01-19 22:00] VITALS: BP 162/76
[2019-01-19] MEDS: hydrALAZINE HCL 25 MG TAB PO SCH (22:46)
[2019-01-20 04:59] VITALS: BP 168/81
[2019-01-20] MEDS: SODIUM CHLORIDE 0.9% 1,000 ML IV SCH ×2 (05:20→13:24)
[2019-01-20] MEDS: metroNIDAZOLE 500MG/100ML 100 ML IV SCH (06:00)
[2019-01-20] MEDS: ACCU-CHEK COMFORT CURVE STRIP VI SCH ×4 (06:00→13:24)
[2019-01-20] MEDS: InsuLIN REG 1unit/0.01ml Soln (100units/ml) SC SCH ×4 (06:00→13:24)
[2019-01-20] MEDS: ALBUTEROL SULF 2.5 MG/0.5ML(0.5%) NEB SOLN NEB SCH ×2 (06:15→11:41)
[2019-01-20] MEDS: IPRATROPIUM BROM 0.5 MG/2.5ML INH SOL NEB SCH ×2 (06:15→11:41)
[2019-01-20] MEDS: hydrALAZINE HCL 25 MG TAB PO SCH ×2 (06:36→13:26)
--- NOTE | 2019-01-20 06:45 | NUR ---
Hydralazine given per orders. BP 168/81. Will reassess in 30 minutes. Patient normally takes bumex at home and has edema to all extremities. No IV access at this time. Hospitalist made aware. Patient did not sleep very much last night, states "The breathing treatment (albuterol) keeps me up." No distress at this time. Verbalized shes feeling so much better and will be going home today. Call light within reach
--- NOTE | 2019-01-20 08:00 | NUR ---
OPENING SHIFT NOTE ASSUMED CARE OF PATIENT. PATIENT IS AWAKE AND ALERT/ORIENTED X4. NO SOB OR SIGNS OF DISTRESS NOTED. INSTRUCTED ON POC AND TO CALL FOR HELP NEEDED. BED IS IN LOWEST POSITION WITH SIDE RAILS UP X2. CALL LIGHT WITHIN REACH. WILL CONTINUE TO MONITOR Q1HR.
[2019-01-20 09:17] VITALS: BP 161/73
[2019-01-20] MEDS ORDERED: hydrALAZINE HCL 25 MG TAB PO SCH (10:00)
[2019-01-20] MEDS ORDERED: LEVOFLOXACIN 500 MG TAB PO SCH (10:00)
[2019-01-20] MEDS: metroNIDAZOLE 500 MG TAB PO SCH ×2 (12:02→13:26)
[2019-01-20] MEDS: predniSONE 20 MG TAB PO SCH (12:03)
[2019-01-20] MEDS: PANTOPRAZOLE 40 MG TAB PO SCH (12:03)
[2019-01-20 12:22] VITALS: BP 151/77
[2019-01-20 12:46] VITALS: BP 151/77
--- NOTE | 2019-01-20 13:55 | NUR ---
DISCHARGED Discharge instructions given as ordered. Encourage to follow up with PCP as instructed. All questions and concerns addressed. Patient verbalized understanding. Medication reconciliation form completed and copy given to patient. Telemetry unit returned to ICU. Patient taken to vehicle via wheelchair with all personal belongings, accompanied by staff and family member. No distress noted at time of departure.
== END 2019-01-20 13:55 | disposition home or self-care (01) | DRG 871 ==
LOC: EDBD 06:20 → ER 06:23 → TELE 06:24 → TELE-CENTR 14:24
PROVIDERS: ADMIT Internal Medicine; ATTEND Internal Medicine Nephrology
DX: A41.9 Sepsis, unspecified organism (principal); I21.4 Non-ST elevation (NSTEMI) myocardial infarction; I13.0 Hypertensive heart and chronic kidney disease with heart failure and stage 1 through stage 4 chronic kidney disease, or unspecified chronic kidney disease; N18.4 Chronic kidney disease, stage 4 (severe); I69.351 Hemiplegia and hemiparesis following cerebral infarction affecting right dominant side; A08.4 Viral intestinal infection, unspecified; E03.9 Hypothyroidism, unspecified; E78.00 Pure hypercholesterolemia, unspecified; E78.5 Hyperlipidemia, unspecified; E86.0 Dehydration; I25.10 Atherosclerotic heart disease of native coronary artery without angina pectoris; I50.9 Heart failure, unspecified; J44.9 Chronic obstructive pulmonary disease, unspecified; K57.90 Diverticulosis of intestine, part unspecified, without perforation or abscess without bleeding; N28.1 Cyst of kidney, acquired; Z79.52 Long term (current) use of systemic steroids; Z82.49 Family history of ischemic heart disease and other diseases of the circulatory system; Z87.891 Personal history of nicotine dependence; Z90.49 Acquired absence of other specified parts of digestive tract; Z90.710 Acquired absence of both cervix and uterus; Z95.5 Presence of coronary angioplasty implant and graft; Z88.1 Allergy status to other antibiotic agents; Z88.0 Allergy status to penicillin; Z88.8 Allergy status to other drugs, medicaments and biological substances; Z79.899 Other long term (current) drug therapy
CPT/HCPCS: 36415; 71045; 74176; 76775; 80053; 81001; 82150; 82550; 82962; 83036; 83605; 83690; 83880; 84300; 84484; 85025; 85610; 85730; 87040; 87086; 93005; 94640; 96361; 96365; 96372; 96375; 99291; G0378; J1956; J2405; J3480; J3490

== ENCOUNTER → 2020-04-28 | Outpatient (CLI) | payer MEDICARE ==
[~2020-04-28] MED LIST changes: -ALLO300T2 PO; -AMIO200T33 PO; -ARFO15NE IN; +BUME1TAB26 PO; +CLON0.1T PO; -FENO1TAB42 OR; -FURO20TA3 PO; +MAGN400T40 PO; -MAGN400T5 PO; -TICA90TA PO; +[UNRECOGNIZED DRUG - CODE] PO
== END | disposition home or self-care (01) ==
LOC: Rad HDHVI 13:11
PROVIDERS: ATTEND Internal Medicine
DX: I08.3 Combined rheumatic disorders of mitral, aortic and tricuspid valves (principal); I25.10 Atherosclerotic heart disease of native coronary artery without angina pectoris; I10 Essential (primary) hypertension
CPT/HCPCS: 93306

== ENCOUNTER → 2020-10-27 | Outpatient (CLI) | payer MEDICARE ==
[~2020-10-27] MED LIST changes: -MONT10TA34 OR; +MONT10TA42 OR
[2020-10-27 11:35] LABS: Albumin 3.4 g/dL (3.4-5.0); Calcium 10.1 mg/dL (8.5-10.1); Potassium 3.8 mmol/L (3.5-5.1)
[2020-10-27 11:40] LABS: BUN/Creatinine Ratio 16.7; Bilirubin, Total 0.5 mg/dL (0.2-1.0); Total Protein 6.9 g/dL (6.4-8.2)
== END | disposition home or self-care (01) ==
LOC: LAB 08:47
PROVIDERS: ATTEND Internal Medicine
DX: I10 Essential (primary) hypertension (principal); E78.5 Hyperlipidemia, unspecified
CPT/HCPCS: 36415; 80053; 80061

== ENCOUNTER → 2021-03-01 | Outpatient (CLI) | payer MEDICARE ==
[~2021-03-01] MED LIST changes: +MONT-8 OR; -MONT10TA42 OR
== END | disposition home or self-care (01) ==
LOC: Rad HDHVI 10:52
PROVIDERS: ATTEND Internal Medicine
DX: I10 Essential (primary) hypertension (principal); I73.9 Peripheral vascular disease, unspecified
CPT/HCPCS: 93880

== ENCOUNTER → 2021-06-22 | Outpatient (CLI) | payer MEDICARE | END | disposition home or self-care (01) | LOC: Rad HDHVI 16:30 | PROVIDERS: ATTEND Internal Medicine | DX: R06.02 Shortness of breath (principal); I70.0 Atherosclerosis of aorta; M47.814 Spondylosis without myelopathy or radiculopathy, thoracic region | CPT/HCPCS: 71046 ==